=== PATIENT | female | born 1935 | race African-American/Black ===

== ENCOUNTER 2017-11-30 08:29 | Inpatient (IN) | payer MEDICARE ==
--- NOTE | 2017-11-18 11:39 | HP ---
HISTORY AND PHYSICAL: DATE OF ADMISSION/SURGERY: 11/30/17 DATE OF OFFICE VISIT: 11/17/17 SURGEON: Alicia Henning MD * (DICTATED BY OSVALDO SALDAÑA) PROCEDURE: Left total knee arthroplasty. CHIEF COMPLAINT: Left knee pain. HISTORY OF PRESENT ILLNESS: Ms. Potter is an 82-year-old female with complaints of left knee pain secondary to end-stage osteoarthritis. She has failed conservative treatment and elected to proceed with a left total knee arthroplasty, which is scheduled for 11/30/[address] Henning. PAST MEDICAL HISTORY: AFib, pacemaker, angiomyolipoma of the kidney, hypothyroidism, coronary artery disease, diabetes, kidney disease, hypertension , hypercholesterolemia. PAST SURGICAL HISTORY: Pacemaker placement and hysterectomy. CURRENT MEDICATIONS: 1. Nitro patch as needed. 2. Losartan potassium 25 mg every day. 3. Eliquis 2.5 mg twice a day. 4. Hydralazine 10 mg 3 times a day. 5. Amlodipine 10 mg every morning. 6. Metformin 500 mg daily. 7. Levothyroxine 112 mcg daily. 8. Atorvastatin calcium 20 mg daily. 9. Glucosamine 500 mg. 10. Vitamin D3. 11. Atenolol 50 mg twice a day. 12. Tylenol as needed. 13. Tramadol 50 mg as needed for pain. ALLERGIES: To KEFLEX. FAMILY HISTORY: Diabetes, hypertension, coronary artery disease. SOCIAL HISTORY: She is an 82-year-old female, she lives alone. She does not smoke, use drugs, or alcohol. REVIEW OF SYSTEMS: A complete 14-point review of systems was reviewed with the patient, positive for hypothyroidism, diabetes, and kidney disease. She denies history of DVT, PE, hepatitis, HIV, or anesthesia problems. PHYSICAL EXAMINATION GENERAL: She is well-developed, well-nourished, in no acute distress. VITAL SIGNS: She stands 61 inches tall, she weighs 113 pounds. Her blood pressure 128/82 and her heart rate is 74. HEENT: Normocephalic and atraumatic. NECK: Supple. No palpable lymph nodes. PULMONARY: The lungs are clear to auscultation bilaterally. CARDIO: Regular rate and rhythm. Strong S1 and S2. ABDOMEN: Soft, nontender, and nondistended. NEUROLOGIC: She is alert and oriented x3. MUSCULOSKELETAL: Left lower extremity: The skin is intact. There are no open wounds or abrasions. There is a moderate joint effusion. Range of motion is 10 to 100 degrees of flexion with patellofemoral crepitus. There is a 12- degree valgus deformity. 5/5 lower extremity strength. 2+ dorsalis pedis pulses and intact sensation. ASSESSMENT AND PLAN: Ms. Potter is an 82-year-old female with continued complaints of left knee pain secondary to end-stage osteoarthritis. She has failed conservative treatment and elected to proceed with a left total knee arthroplasty, which is scheduled for 11/30/[address] Henning discussed the risks and the benefits of the surgery at today's visit and all of her questions were answered. She will follow up with Dr. Henning 2 weeks after the surgery. OSVALDO SALDAÑA [id number]/[facility] #: [id number] [place]
[~2017-11-30 08:29] MED LIST: Buffered Lidocaine 0.9% SYRIN* 5 ML/SYR SYRINGE INTRADERM ONE
--- OUTSIDE RECORDS SUMMARY | 2017-11-30 08:33 | XMS REPORT ---
:1935 External Reference #:[id number] Author Organization [employer] Address [address] [place] [address] [place] [address] Phone [phone] Care Team Providers Name Role Phone Dimitry Baltazar MD Primary Care Physician Unavailable Payers Type Date Identification Numbers Payment Provider Subscriber Commercial Policy Number: [id number] [employer]/Todays Options Lilliana Potter PayID: [id number] [address] [address] Attn: [place] [address] Problems Date Description Provider Status Onset: 03/13/2014 Cardiac pacemaker in situ Renuka Cunningham M.D. Active Onset: 03/13/2014 Sinus node dysfunction Renuka Cunningham M.D. Active Onset: 03/13/2014 Paroxysmal supraventricular tachycardia Renuka Cunningham M.D. Active Onset: 09/18/2014 Hyperlipidemia Renuka Cunningham M.D. Active Onset: 09/18/2014 Aortic valve disorder Renuka Cunningham M.D. Active Onset: 10/24/2015 Paroxysmal atrial fibrillation Renuka Cunningham M.D. Active Onset: 02/25/2016 Localized, primary osteoarthritis Ofe Vela MD Active Onset: 02/25/2016 Calcific tendinitis of right shoulder Ofe Vela MD Active Onset: 02/25/2016 Brachial neuritis Ofe Vela MD Active Onset: 08/06/2016 Pure hypercholesterolemia Renuka Cunningham M.D. Active Onset: 08/06/2016 Coronary artery atheroma Renuka Cunningham M.D. 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 Active unsp ang pctrs Family History Date Family Member(s) Problem(s) Comments General Diabetes General Hypertension Social History Type Date Description Comments Marital Status Lives With Alone Occupation Retired Cigarette Use Former Cigarette Smoker ETOH Use Denies alcohol use Smoking Patient is a former smoker quit smoking 40 years ago May 1975 Recreational Drug Use Denies Drug Use Daily Caffeine Consumes on average 2 cups of decaff coffee per day Daily Caffeine Coffee occasionally Exercise Type/Frequency Exercises sporadically Allergies, Adverse Reactions, Alerts Date Description Reaction Status Severity Comments 05/29/2013 Keflex hives active 05/29/2013 Amlodipine LE edema active 05/29/2013 Diovan palpitations inactive Medications Medication Date Status Form Strength Qnty SIG Indications Ordering Provider Tramadol HCL 09/24 Active Tablets 50mg 30tab 1-2 tablet s by mouth Juvencio, every 6 M.D. hours as needed pain Nitro-Dur 02/05 Active Patches 0.2mg/HR 30uni 1 patch R07.9 24HR ts every day Marisa, on in the M.D. morning, off at night Losartan Potassium 01/27 Active Tablets 25mg 90tab 1 by mouth I10 Eyal S. s every day Wade, at night. DO FACC Eliquis 10/23 Active Tablets 2.5mg 60tab 1 tablet by I48.0 s mouth twice Marisa, a day. M.D. blood thinner. Hydralazine HCL 05/19 Active Tablets 10mg 540ta 2 tabs by Renuka bs mouth three Bingham, times a day M.D. Amlodipine Active Tablets 10mg 1 tab po qd Unknown Besylate Am Metformin HCL Active Tablets 500mg 1 tab po Unknown once daily Levothyroxine Active Tablets 112mcg 1 tab po qd Unknown Sodium Am Atorvastatin Active 20mg 1 tab po qd Unknown Calcium / pm Glucosamine Active Capsules 500mg 1 tablet po Unknown / as needed (ran out, will restart) Vitamin D3 Active 2000Units 1 po daily Unknown occasionall y Atenolol 00/00 Active Tablets 50mg 180ta 1 tab by Renuka / bs mouth twice Marisa, a day am/pm M.D. MSM Active Capsules 1000mg 1/2 tablet Unknown /0000 by mouth occasional Tylenol Active Capsules 2 tablets Unknown /0000 every 4 hours as needed for pain Tylenol With 02/24 Hx Tablets 300-30mg 30tab 1 tab by Jose Mcgarry #3 s mouth every Oc, - 4 hours as M.D. 09/14 needed pain /2017 Klor-Con 10 09/18 Hx Tablets 10Meq 90tab 1 tablets 427.0 Renuka ER s by mouth Bingham, - daily . M.D. 12/24 Losartan Potassium 07/07 Hx Tablets 100mg 90tab 1 tab by Renuka s mouth every Bingham, - day M.D. 08/28 Isosorbide Hx Tablets 10mg 90tab 1 tab by Renuka Dinitrate / s mouth three Bingham, - times a day M.D. 08/28 Aspirin Hx Tablets 81mg 1 po qd I48.0 Unknown /0000 DR - 10/23 Potassium Hx Tablets 595mg 2 tabs Unknown Gluconate / daily - 06/01 Vitamin D3 Hx Capsules 2000Unit 2 by mouth Unknown /0000 every day - 06/01 Aspirin Ec Low Hx Tablets 81mg 1 by mouth Unknown Dose /0000 DR every day - 07/19 Isosorbide Hx Tablets 10mg 1 tab by Unknown Dinitrate / mouth three - times a day 02/05 (patient /2017 thinks she stopped taking it) Gabapentin Hx Capsules 300mg 1 by mouth Unknown /0000 two times a - day (pt is 03/29 not taking) Gabapentin Hx Capsules 100mg 1 tablet po Rah, / twice daily Abraham, - ( Pt has [facility] 07/25 been taking /2017 only evening dose for 1 week now, start Am dose today 03/30/17) Methylprednisolone 00 Hx TBPK 4mg Rah, /0000 Abraham, - [facility] 07/25 Cyclobenzaprine Hx Tablets 5mg Monreal, HCL / Abraham, - [facility] 07/25 Medications Administered in Office Medication Date Status Form Strength Qnty SIG Indications Ordering Provider Inj, Administered Injection Renuka Regadenoson, 018 Bingham, 0.1 MG M.D. Technetium TC Administered Injection Renuka 99M 018 Bingham, Tetrofosmin, M.D. Per Unit Dose Up To 40 Millicuries Technetium TC Administered Injection Renuka 99M 018 Marisa, Tetrofosmin, M.D. Per Unit Dose Up To 40 Millicuries Depomedrol Administered Injection Alicia 40MG 018 Juvencio, M.D. Inj, Administered Injection Renuka Regadenoson, 013 Marisa, 0.1 MG M.D. Technetium TC Administered Injection Renuka 99M 013 Marisa, Tetrofosmin, M.D. Per Unit Dose Up To 40 Millicuries Immunizations CPT Code Status Date Vaccine Lot # [id number] Given 02/24/2006 Influenza Virus 3Yrs & Over [id number] Given 02/24/2006 Influenza Virus 3Yrs & Over Vital Signs Date Vital Result Comment 11/17/2017 Height 61.5 inches 5'1.50" Weight 113.00 lb BP Systolic 128 mmHg BP Diastolic 82 mmHg Respiratory Rate 16 /min Body Temperature 98.0 F Pain Level 5 BMI (Body Mass Index) 21.0 kg/m2 10/26/2017 Height 61.5 inches 5'1.50" Weight 113.00 lb Heart Rate 56 /min BP Systolic Sitting 128 mmHg BP Diastolic Sitting 74 mmHg BP Systolic Standing 120 mmHg BP Diastolic Standing 80 mmHg BMI (Body Mass Index) 21.0 kg/m2 Ejection Fraction 65-70% 07-11-201509/15/2017 Height 61.5 inches 5'1.50" Weight 118.00 lb Heart Rate 80 /min BP Systolic 160 mmHg BP Diastolic 84 mmHg BMI (Body Mass Index) 21.9 kg/m2 07/26/2017 Height 61.5 inches 5'1.50" Weight 118.00 lb Heart Rate 70 /min BP Systolic Sitting 158 mmHg LA reg cuff BP Diastolic Sitting 90 mmHg LA reg cuff Pain Level 0 BMI (Body Mass Index) 21.9 kg/m2 07/19/2017 Height 61.5 inches 5'1.50" Weight 118.00 lb Heart Rate 63 /min BP Systolic 124 mmHg BP Diastolic 68 mmHg Respiratory Rate 20 /min Body Temperature 97.7 F Pain Level 0 BMI (Body Mass Index) 21.9 kg/m2 03/30/2017 Height 61.5 inches 5'1.50" Weight 118.00 lb w/shoes Heart Rate 66 /min BP Systolic Sitting 168 mmHg LA reg cuff BP Diastolic Sitting 90 mmHg LA reg cuff BP Systolic Standing 170 mmHg LA reg cuff BP Diastolic Standing 98 mmHg LA reg cuff BMI (Body Mass Index) 21.9 kg/m2 Ejection Fraction 65-70% date 07/12/2015 ECHO 02/23/2017 Height 61.5 inches 5'1.50" Weight 117.00 lb with shoes Heart Rate 66 /min BP Systolic Sitting 158 mmHg Lue reg cuff BP Diastolic Sitting 92 mmHg Lue reg cuff BP Systolic Standing 146 mmHg Lue reg cuff BP Diastolic Standing 82 mmHg Lue reg cuff Respiratory Rate 16 /min BMI (Body Mass Index) 21.7 kg/m2 Ejection Fraction 65-70% 07/12/2015-echo 02/05/2017 Height 61.5 inches 5'1.50" Weight 116.75 lb with shoes Heart Rate 70 /min BP Systolic Sitting 140 mmHg LA reg cuff BP Diastolic Sitting 78 mmHg LA reg cuff BMI (Body Mass Index) 21.7 kg/m2 Ejection Fraction 65% - 70% echo 07/12/15 09/11/2016 Height 61.5 inches 5'1.50" Weight 118.00 lb without shoes Heart Rate 68 /min BP Systolic Sitting 144 mmHg Lue reg cuff BP Diastolic Sitting 80 mmHg Lue reg cuff BP Systolic Standing 140 mmHg Lue reg cuff BP Diastolic Standing 78 mmHg Lue reg cuff Respiratory Rate 17 /min BMI (Body Mass Index) 21.9 kg/m2 Ejection Fraction 65-70% date 07/12/2015 echo 08/06/2016 Height 61.5 inches 5'1.50" Weight 118.00 lb Heart Rate 68 /min BP Systolic Sitting 132 mmHg Lue reg cuff BP Diastolic Sitting 74 mmHg Lue reg cuff BP Systolic Standing 128 mmHg Lue BP Diastolic Standing 78 mmHg Lue Respiratory Rate 14 /min BMI (Body Mass Index) 21.9 kg/m2 Ejection Fraction 65-70% 07/12/15 03/31/2016 Height 61.5 inches 5'1.50" Weight 116.00 lb Respiratory Rate 16 /min Pain Level 0 BMI (Body Mass Index) 21.6 kg/m2 02/25/2016 Height 61.5 inches 5'1.50" Weight 116.00 lb Heart Rate 60 /min Respiratory Rate 16 /min Pain Level 5 BMI (Body Mass Index) 21.6 kg/m2 02/18/2016 Height 61.5 inches 5'1.50" Weight 116.00 lb BP Systolic 140 mmHg BP Diastolic 82 mmHg Pain Level 4 BMI (Body Mass Index) 21.6 kg/m2 01/28/2016 Height 61.5 inches 5'1.50" Weight 118.50 lb no shoes Heart Rate 64 /min BP Systolic Sitting 170 mmHg LA reg cuff BP Diastolic Sitting 100 mmHg LA reg cuff BP Systolic Standing 166 mmHg LA reg cuff BP Diastolic Standing 98 mmHg LA reg cuff Respiratory Rate 17 /min BMI (Body Mass Index) 22.0 kg/m2 Ejection Fraction 65-70% 07/12/15 11/06/2015 Height 61.5 inches 5'1.50" Weight 121.50 lb with shoes Heart Rate 58 /min BP Systolic Sitting 146 mmHg LA reg cuff BP Diastolic Sitting 84 mmHg LA reg cuff BP Systolic Standing 144 mmHg LA reg cuff BP Diastolic Standing 82 mmHg LA reg cuff Respiratory Rate 16 /min BMI (Body Mass Index) 22.6 kg/m2 Ejection Fraction 65-70% date 07/12/15 ECHO 10/24/2015 Height 61.5 inches 5'1.50" Weight 119.00 lb No shoes Heart Rate 68 /min BP Systolic Sitting 142 mmHg LA reg cuff BP Diastolic Sitting 86 mmHg LA reg cuff BP Systolic Standing 146 mmHg LA reg cuff BP Diastolic Standing 90 mmHg LA reg cuff Respiratory Rate 16 /min BMI (Body Mass Index) 22.1 kg/m2 Ejection Fraction 65-70% 07/12/15 08/30/2015 Height 61.5 inches 5'1.50" Weight 119.00 lb with out shoes Heart Rate 60 /min BP Systolic Sitting 128 mmHg LA reg cuff BP Diastolic Sitting 80 mmHg LA reg cuff Respiratory Rate 16 /min BMI (Body Mass Index) 22.1 kg/m2 Ejection Fraction 65-70% date 07/12/15 ECHO 07/02/2015 Height 61.5 inches 5'1.50" Weight 120.00 lb w/o shoes Heart Rate 70 /min reg BP Systolic Sitting 126 mmHg Lue, reg cuff BP Diastolic Sitting 84 mmHg Lue, reg cuff BP Systolic Standing 132 mmHg Lue BP Diastolic Standing 84 mmHg Lue Respiratory Rate 16 /min BMI (Body Mass Index) 22.3 kg/m2 Ejection Fraction 55-60% as of 06/20/12 echo 12/25/2014 Height 61.5 inches 5'1.50" Weight 122.00 lb with shoes Heart Rate 80 /min BP Systolic Sitting 150 mmHg LA reg cuff BP Diastolic Sitting 90 mmHg LA reg cuff BP Systolic Standing 140 mmHg LA reg cuff BP Diastolic Standing 88 mmHg LA reg cuff Respiratory Rate 17 /min BMI (Body Mass Index) 22.7 kg/m2 Ejection Fraction 55-60% date 06/20/12 ECHO 09/18/2014 Height 61.5 inches 5'1.50" Weight 127.00 lb with shoes Heart Rate 70 /min BP Systolic Sitting 154 mmHg LA, reg cuff BP Diastolic Sitting 92 mmHg LA, reg cuff BP Systolic Standing 140 mmHg LA BP Diastolic Standing 90 mmHg LA Respiratory Rate 14 /min BMI (Body Mass Index) 23.6 kg/m2 Ejection Fraction 55-60% 06/20/2012 03/13/2014 Height 61.5 inches 5'1.50" Weight 131.00 lb with shoes Heart Rate 60 /min regular BP Systolic Sitting 128 mmHg left arm reg cuff BP Diastolic Sitting 88 mmHg left arm reg cuff BP Systolic Standing 132 mmHg left arm reg cuff BP Diastolic Standing 84 mmHg left arm reg cuff Respiratory Rate 18 /min BMI (Body Mass Index) 24.3 kg/m2 10/27/2013 Height 61.5 inches 5'1.50" Weight 132.00 lb Heart Rate 64 /min BP Systolic Sitting 138 mmHg Ra reg cuff BP Diastolic Sitting 72 mmHg Ra reg cuff BP Systolic Standing 140 mmHg Ra BP Diastolic Standing 82 mmHg Ra Respiratory Rate 16 /min BMI (Body Mass Index) 24.5 kg/m2 05/29/2013 Height 61.50 inches 5'1.50" Weight 134.00 lb without shoes Heart Rate 80 /min reg cuff BP Systolic Sitting 130 mmHg L arm reg cuff BP Diastolic Sitting 72 mmHg L arm reg cuff BP Systolic Standing 140 mmHg L arm reg cuff BP Diastolic Standing 80 mmHg L arm reg cuff Respiratory Rate 18 /min BMI (Body Mass Index) 24.9 kg/m2 Results Test Date Test Result H/L Range Note Urinalysis Profile 04/20/2017 Urine Color Yellow Urine Appearance Clear Urine Specific Plummer 1.013 1.010-1.030 Urine pH 7.0 5-9 Urine Urobilinogen Negative Negative Urine Ketones Negative Negative Urine Protein Negative Negative Urine Leukocytes Negative Negative Urine Blood Negative Negative Urine Nitrite Negative Negative Urine Bilirubin Negative Negative Urine Glucose Negative Negative Urine Culture And 04/20/2017 Urine Culture SEE RESULT BELOW 1 Sensitivities Basic Metabolic Panel 04/20/2017 Sodium 139 mmol/L 133-145 Potassium 4.2 mmol/L 3.5-5.0 Chloride 105 mmol/L 101-111 Co2 Carbon Dioxide 28 mmol/L 22-32 Anion Gap 6 mmol/L 2-11 Glucose 95 mg/dL 70-100 Blood Urea Nitrogen 18 mg/dL 6-24 Creatinine 0.80 mg/dL 0.51-0.95 BUN/Creatinine Ratio 22.5 High 8-20 Calcium 10.2 mg/dL 8.6-10.3 Egfr Non- 68.5 >60 Egfr 88.1 >60 2 Lipid Profile (Trig/Chol/HDL) 04/20/2017 Triglycerides 73 mg/dL 3 Cholesterol 134 mg/dL 4 HDL Cholesterol 49.0 mg/dL 5 LDL Cholesterol 70 mg/dL 6 Liver Function Panel 04/20/2017 Total Protein 7.4 g/dL 6.4-8.9 Albumin 4.2 g/dL 3.2-5.2 Globulin 3.2 g/dL 2-4 Albumin/Globulin Ratio 1.3 1-3 Total Bilirubin 0.70 mg/dL 0.2-1.0 Direct Bilirubin 0.10 mg/dL 0.03-0.18 Indirect Bilirubin 0.6 mg/dL 0.3-1.0 Alkaline Phosphatase 38 U/L 34-104 Alt 12 U/L 7-52 Ast 15 U/L 13-39 Laboratory test finding 04/20/2017 TSH (Thyroid Stim Horm) 0.82 mcIU/mL 0.34-5.60 Urine Microalbumin 04/20/2017 Ur Microalbumin (mg/L) 48.7 mg/L Random Urine Creatinine 99.79 mg/dL Urine Microalbumin/Creatinine 48.8 ug/mg High <31 CBC Auto Diff 04/20/2017 White Blood Count 5.2 10^3/uL 3.5-10.8 Red Blood Count 3.88 10^6/uL Low 4.0-5.4 Hemoglobin 11.7 g/dL Low 12.0-16.0 Hematocrit 35 % 35-47 Mean Corpuscular Volume 91 fL 80-97 Mean Corpuscular Hemoglobin 30 pg 27-31 Mean Corpuscular HGB Conc 33 g/dL 31-36 Red Cell Distribution Width 15 % 10.5-15 Platelet Count 208 10^3/uL 150-450 Mean Platelet Volume 9 um3 7.4-10.4 Abs Neutrophils 2.5 10^3/uL 1.5-7.7 Abs Lymphocytes 2.1 10^3/uL 1.0-4.8 Abs Monocytes 0.4 10^3/uL 0-0.8 Abs Eosinophils 0.1 10^3/uL 0-0.6 Abs Basophils 0.1 10^3/uL 0-0.2 Abs Nucleated RBC 0 10^3/uL Granulocyte % 48.8 % 38-83 Lymphocyte % 41.0 % 25-47 Monocyte % 7.0 % 1-9 Eosinophil % 2.0 % 0-6 Basophil % 1.2 % 0-2 Nucleated Red Blood Cells % 0 Laboratory test finding 04/20/2017 Erythrocyte Sed Rate 34 mm/Hr 0-40 Urine Culture And 04/19/2017 Urine Culture SEE RESULT BELOW 7 Sensitivities Urinalysis Profile 04/19/2017 Urine Color Yellow Urine Appearance Clear Urine Specific Plummer 1.019 1.010-1.030 Urine pH 6.0 5-9 Urine Urobilinogen Negative Negative Urine Ketones Negative Negative Urine Protein 1+(30 mg/dL) Negative Urine Leukocytes Negative Negative Urine Blood Negative Negative Urine Nitrite Negative Negative Urine Bilirubin Negative Negative Urine Glucose Negative Negative Urine White Blood Cell Trace(0-5/hpf) Absent Urine Red Blood Cell Trace(0-2/hpf) Absent Urine Bacteria Absent Absent Urine Squamous Epithelial Cell Present Absent Basic Metabolic Panel 11/08/2013 Sodium 140 mmol/L 133-145 Potassium 3.8 mmol/L 3.7-5.6 Chloride 107 mmol/L 101-111 Co2 Carbon Dioxide 26 mmol/L 22-32 Anion Gap 7 mmol/L 2-11 Glucose 140 mg/dL High 70-100 Blood Urea Nitrogen 11 mg/dL 6-24 Creatinine 0.71 mg/dL 0.51-0.95 BUN/Creatinine Ratio 15.5 8-20 Calcium 10.1 mg/dL 8.6-10.3 Egfr Non- 79.4 >60 Egfr 102.1 >60 8 Laboratory test finding 11/08/2013 Creatine Kinase 51 U/L 10-223 Laboratory test finding 05/15/2013 TSH (Thyroid Stimulating 2.07 miu/mL 0.34-5.60 Horm) Liver Function Panel 05/15/2013 Direct Bilirubin 0.1 mg/dL 0.1-0.5 Indirect Bilirubin 0.7 mg/dL 0.3-1.0 Lipid Profile (Trig/Chol/HDL) 05/15/2013 Triglycerides 104 mg/dL 40-200 Cholesterol 142 mg/dL Less than 200 HDL Cholesterol 47 mg/dL 40-60 9 Cholesterol/HDL Ratio 3.0 Average 1-4.44 LDL Cholesterol 74.2 Less Than 100 10 Comp Metabolic Panel 05/15/2013 Sodium 137 mmol/L 133-145 Potassium 3.2 mmol/L Low 3.5-5.0 Chloride 99 mmol/L Low 101-111 Co2 Carbon Dioxide 27.0 mmol/L 22-32 Anion Gap 11.0 mmol/L 2-11 Glucose 121 mg/dL High 70-100 Blood Urea Nitrogen 14 mg/dL 6-24 Creatinine 0.70 mg/dL 0.50-1.40 BUN/Creatinine Ratio 20.0 8-20 Calcium 10.3 mg/dL High 8.1-9.9 Total Protein 7.4 g/dL 6.2-8.1 Albumin 4.2 g/dL 3.2-5.2 Globulin 3.2 g/dL 2-4 Albumin/Globulin Ratio 1.3 1-3 Total Bilirubin 0.8 mg/dL 0.4-1.5 Alkaline Phosphatase 36 U/L 30-110 Alt 15 U/L 14-54 Ast 19 U/L 12-42 Egfr Non- 80.7 >60 Egfr 103.8 >60 11 Urine Microalbumin Random 05/15/2013 Ur Microalbumin (mg/L) 123.0 mg/L 12 Urine Creatinine 28.9 mg/dL Urine Microalbumin/Creatinine 425.6 High Less Than 31 CBC No Diff 05/15/2013 White Blood Count 5.9 10^3/uL 4.8-10.8 Red Blood Count 4.16 10^6/uL 4.0-5.4 Hemoglobin 12.9 g/dL 12.0-16.0 Hematocrit 37 % 35-47 Mean Corpuscular Volume 89 fL 80-97 Mean Corpuscular Hemoglobin 31 pg 27-31 Mean Corpuscular HGB Conc 35 g/dL 31-36 Red Cell Distribution Width 15 % 10.5-15 Platelet Count 209 10^3/uL 150-450 Mean Platelet Volume 10 um3 7.4-10.4 Laboratory test finding 10/20/2012 Inr 0.91 0.87-0.97 13 Activated Partial Thrombo Time 29.7 seconds 22.18-37.18 14 Comp Metabolic Panel 10/20/2012 Sodium 142 mmol/L 133-145 Potassium 3.2 mmol/L Low 3.5-5.0 Chloride 107 mmol/L 101-111 Co2 Carbon Dioxide 26.0 mmol/L 22-32 Anion Gap 9.0 mmol/L 2-11 Glucose 118 mg/dL High 70-100 Blood Urea Nitrogen 15 mg/dL 6-24 Creatinine 0.70 mg/dL 0.50-1.40 BUN/Creatinine Ratio 21.4 High 8-20 Calcium 10.1 mg/dL High 8.1-9.9 Total Protein 7.5 g/dL 6.2-8.1 Albumin 3.8 g/dL 3.2-5.2 Globulin 3.7 g/dL 2-4 Albumin/Globulin Ratio 1.0 1-3 Total Bilirubin 0.9 mg/dL 0.4-1.5 Alkaline Phosphatase 38 U/L 30-110 Alt 13 U/L Low 14-54 Ast 17 U/L 12-42 Egfr Non- 80.9 >60 Egfr 104.1 >60 15 CBC With Manual Diff 10/20/2012 White Blood Count 5.9 10^3/uL 4.8-10.8 Red Blood Count 4.11 10^6/uL 4.0-5.4 Hemoglobin 12.8 g/dL 12.0-16.0 Hematocrit 37 % 35-47 Mean Corpuscular Volume 91 fL 80-97 Mean Corpuscular Hemoglobin 31 pg 27-31 Mean Corpuscular HGB Conc 34 g/dL 31-36 Red Cell Distribution Width 15 % 10.5-15 Platelet Count 200 10^3/uL 150-450 Mean Platelet Volume 10 um3 7.4-10.4 Abs Neutrophils 3.2 10^3/uL 1.5-7.7 Abs Lymphocytes 2.0 10^3/uL 1.0-4.8 Abs Monocytes 0.5 10^3/uL 0-0.8 Abs Eosinophils 0.1 10^3/uL 0-0.6 Abs Basophils 0.1 10^3/uL 0-0.2 Abs Nucleated RBC 0 10^3/uL Neutrophil % 52 % 38-83 Band % 1 % 0-8 Lymphocytes % 41 % 25-47 Monocytes % 5 % 0-13 Reactive Lymph % 1 % 0-6 RBC Morphology Normal Normal 1 SEE RESULT BELOW Name: LILLIANA POTTER : [address]: Renuka Cunningham MD Acct: [id number] Unit: [id number] AGE: 82 Location: [facility] Re04/20/17 SEX: F Status: REG REF SPEC: [id number] ALICIA: 04/20/17-[address] [facility] [address]: Renuka Cunningham MD REQ: [id number] RECD: 04/20/17 STATUS: AISHA CABRALES DR: Dimitry Baltazar MD _ SOURCE: URINE SPDESC: ORDERED: Urine Culture Urine Source: Clean Catch Procedure Result Reported Site Urine Culture Final 04/22/17- 0826 ML No Growth (<1,000 CFU/mL) * ML - MAIN LAB ([facility]) . END OF REPORT * ML=Testing performed at Main Lab DEPARTMENT OF PATHOLOGY, [address] [place] [address] Darnell Mcgraw M.D. Director [facility] # [id number] 2 Because ethnic data is not always readily available, this report includes an eGFR for both -Americans and non- Americans. The National Kidney Disease Education Program (NKDEP) does not endorse the use of the MDRD equation for patients that are not between the ages of 18 and 70, are , have extremes of body size, muscle mass, or nutritional status, or are non- or non-. According to the National Kidney Foundation, irrespective of diagnosis, the stage of the disease is based on the level of kidney function: Stage Description GFR(mL/min/1.73 m(2)) 1 Kidney damage with normal or decreased GFR 90 2 Kidney damage with mild decrease in GFR 60-89 3 Moderate decrease in GFR 30-59 4 Severe decrease in GFR 15-29 5 Kidney failure <15 (or dialysis) 3 Desirable: <150 Borderline High: 150-199 High: 200-499 Very High: >500 4 Desirable: <200 Borderline High: 200-239 High: >239 5 Low: <40 Desirable: 40-60 High: >60 6 Desirable: <100 Near Optimal: 100-129 Borderline High: 130-159 High: 160-189 Very High: >189 7 SEE RESULT BELOW Name: LILLIANA POTTER : [address]: Renuka Cunningham MD Acct: [id number] Unit: [id number] AGE: 82 Location: [facility] Re04/19/17 SEX: F Status: REG REF SPEC: [id number] ALICIA: 04/19/[address] [facility] [address]: Renuka Cunningham MD REQ: [id number] RECD: 04/19/17 STATUS: AISHA CABRALES DR: Dimitry Baltazar MD _ SOURCE: URINE SPDESC: ORDERED: Urine Culture COMMENTS: Copy Result to: DIMITRY BALTAZAR ([id number]) Procedure Result Reported Site Urine Culture Final 04/20/17- 1258 ML No growth of clinically significant organisms * ML - MAIN LAB ([facility]) . END OF REPORT * ML=Testing performed at Main Lab DEPARTMENT OF PATHOLOGY, [address] [place] [address] Darnell Mgcraw M.D. Director [facility] # [id number] 8 Because ethnic data is not always readily available, this report includes an eGFR for both -Americans and non- Americans. The National Kidney Disease Education Program (NKDEP) does not endorse the use of the MDRD equation for patients that are not between the ages of 18 and 70, are , have extremes of body size, muscle mass, or nutritional status, or are non- or non-. According to the National Kidney Foundation, irrespective of diagnosis, the stage of the disease is based on the level of kidney function: Stage Description GFR(mL/min/1.73 m(2)) 1 Kidney damage with normal or decreased GFR 90 2 Kidney damage with mild decrease in GFR 60-89 3 Moderate decrease in GFR 30-59 4 Severe decrease in GFR 15-29 5 Kidney failure <15 (or dialysis) 9 HDL Interpretation: Undesirable: High Risk: Less than 40 mg/dL Desirable: Low Risk: Greater than 60 mg/dL 10 LDL Interpretation: Low Risk Optimal Level: LDL Less than 100 mg/dL Near or Above Optimal: LDL 100-129 mg/dL Borderline High Risk: LDL 130-159 mg/dL High Risk: LDL 160-189 mg/dL Very High Risk: LDL Greater than 189 mg/dL 11 Because ethnic data is not always readily available, this report includes an eGFR for both -Americans and non- Americans. The National Kidney Disease Education Program (NKDEP) does not endorse the use of the MDRD equation for patients that are not between the ages of 18 and 70, are , have extremes of body size, muscle mass, or nutritional status, or are non- or non-. According to the National Kidney Foundation, irrespective of diagnosis, the stage of the disease is based on the level of kidney function: Stage Description GFR(mL/min/1.73 m(2)) 1 Kidney damage with normal or decreased GFR 90 2 Kidney damage with mild decrease in GFR 60-89 3 Moderate decrease in GFR 30-59 4 Severe decrease in GFR 15-29 5 Kidney failure <15 (or dialysis) 12 Microalbuminuria in a random sample is defined as: Microalbumin/Creatinine ratio of 30-299 ug/mg. 13 CALL RESULTS TOO EX 4590 14 CALL RESULTS TOO EX 4590 15 Because ethnic data is not always readily available, this report includes an eGFR for both -Americans and non- Americans. The National Kidney Disease Education Program (NKDEP) does not endorse the use of the MDRD equation for patients that are not between the ages of 18 and 70, are , have extremes of body size, muscle mass, or nutritional status, or are non- or non-. According to the National Kidney Foundation, irrespective of diagnosis, the stage of the disease is based on the level of kidney function: Stage Description GFR(mL/min/1.73 m(2)) 1 Kidney damage with normal or decreased GFR 90 2 Kidney damage with mild decrease in GFR 60-89 3 Moderate decrease in GFR 30-59 4 Severe decrease in GFR 15-29 5 Kidney failure <15 (or dialysis) Procedures Date CPT Code Description Status Comment 11/16/2017 22378 Myocardial Perfusion Imaging Completed Tomographic (Spect) Multiple Studies 10/26/2017 21668 Pace Maker Eval W/Iterative Completed Adjment Dual Lead 10/26/2017 54098 Pace Maker Eval W/Iterative Completed Adjment Dual Lead 10/26/2017 96708 EKG Tracing & Interpretation Completed 07/26/2017 97601 Inject/Drain Joint/Bursa Major Completed W/O US 03/30/2017 86489 Pace Maker Eval W/Iterative Completed Adjment Dual Lead 03/30/2017 97445 Pace Maker Eval W/Iterative Completed Adjment Dual Lead 02/05/2017 13936 EKG Tracing & Interpretation Completed 08/28/2016 57517 ECHO Stress Test Incl Perf Completed Contiuous ekg Monitoring W/Phys Superv 08/11/2016 12197 Pace Maker Eval W/Iterative Completed Adjment Dual Lead 08/06/2016 25934 EKG Tracing & Interpretation Completed 08/03/2016 Diabetic Retinal Eye Exam Completed Document: 08/03/16 - Consult Ophthalmology-Cornelio 01/28/2016 03198 Pace Maker Eval W/Iterative Completed Adjment Dual Lead 10/24/2015 67471 Pace Maker Eval W/Iterative Completed Adjment Dual Lead 08/30/2015 49488 Pace Maker Eval W/Iterative Completed Adjment Dual Lead 08/24/2015 65605 Interrogation Device Eval In Completed Person W/DR Analysis,Single,Dual,Mul 07/12/2015 29165 ECHO Transthoracic, Real-Time Completed 2D With Doppler And Color Flow 07/02/2015 62025 Pace Maker Eval W/Iterative Completed Adjment Dual Lead 12/13/2014 40048 Interrogation Device Eval In Completed Person W/DR Analysis,Single,Dual,Mul 09/18/2014 18795 Interrogation Device Eval In Completed Person W/DR Analysis,Single,Dual,Mul 09/13/2014 Bone Mineral Density Test Completed 05/22/2014 Diabetic Retinal Eye Exam Completed Document: 05/22/14 - Consult Ophthalmology-Dr. Garay 03/13/2014 74314 Pace Maker Eval W/Iterative Completed Adjment Dual Lead 10/27/2013 37614 EKG Tracing & Interpretation Completed 09/05/2013 48412 Pace Maker Eval W/Iterative Completed Adjment Dual Lead 05/23/2013 63858 Pace Maker Eval W/Iterative Completed Adjment Dual Lead 12/26/2012 12003 Interrogation Device Eval In Completed Person W/DR Analysis,Single,Dual,Mul 11/23/2012 29539 Pace Maker Eval W/Iterative Completed Adjment Dual Lead 10/21/2012 04802 EKG, Interpretation Only Completed 10/21/2012 18846 Interrogation Device Eval In Completed Person W/DR Analysis,Single,Dual,Mul 10/20/2012 32783 Perm Pacemaker Av Sequential Completed Atrial And Ventricular 10/20/2012 29841 EKG, Interpretation Only Completed 09/23/2012 95781 Holter Monitoring 24 HR New Completed 06/30/2012 66260 Stress Test Completed 06/30/2012 64064 Myocardial Perfusion Imaging Completed Tomographic (Spect) Multiple Studies 06/22/2012 53911 EKG Tracing & Interpretation Completed 06/20/2012 83608 ECHO Transthorasic Realtime 2D Completed W Doppler & Color Flow Hosp 05/06/2008 37953 Treadmill Interp/Report Only Completed 05/06/2008 17855 Stress Test Supervsn W/Out I/R Completed 05/06/2008 92143 Stress Test Supervsn W/Out I/R Completed 03/23/2006 35470 EKG Tracing & Interpretation Completed 03/23/2006 34528 EKG Tracing & Interpretation Completed Encounters Type Date Location Provider CPT E/M Dx Office Visit 09/15/2017 [facility] M.D. 09114 M17.12 8:15a [facility] M21.062 M25.462 M25.562 Office Visit 07/19/2017 1:30p [facility] Hen[facility] M.D. 92183 M17.12 [facility] M21.00 M25.562 M25.462 Office Visit 03/30/2017 3:00p [facility] Cr Cunningham M.D. 02403 Z95.0 [employer] Carpenter I48.0 I35.0 R35.0 I49.5 E11.8 Office Visit 02/23/2017 1:00p [facility] Cr Cunningham M.D. 65864 R07.9 [employer] [facility] Z95.0 I48.0 I35.0 Office Visit 02/05/2017 3:00p [facility] OSVALDO Flowers 01208 R07.9 Z95.0 I48.0 Office Visit 09/11/2016 3:15p [facility] Renuka Cunningham M.D. 88707 Z95.0 [facility] I48.0 I49.5 E11.8 R01.1 I25.119 Office Visit 08/06/2016 3:30p [facility] Renuka Cunningham M.D. 26581 Z95.0 [facility] I48.0 I10 I35.0 E78.00 M79.604 I25.119 Office Visit 03/31/2016 11:30a [facility] [address] M75.31 [facility] M17.12 M54.12 Office Visit 02/25/2016 10:00a [facility] [place] [address] M75.31 [facility] M17.12 M54.12 Office Visit 02/18/2016 3:00p [facility] [place] [address] M75.41 [facility] M75.31 Office Visit 01/28/2016 8:30a [facility] Renuka Cunningham M.D. 65797 I48.0 [employer] I47.1 Z95.0 I10 R63.4 D41.00 Office Visit 11/06/2015 11:30a [facility] OSVALDO Flowers 87722LQP Z95.0 I48.0 I10 Office Visit 10/24/2015 1:30p [facility] Renuka Cunningham M.D. 55729 I48.0 [facility] Z95.0 I49.5 R53.83 I10 R42 Office Visit 08/30/2015 11:30a [facility] OSVALDO Flowers 65287 Z95.0 R55 E78.5 I25.10 Office Visit 08/25/2015 3:15p [facility] Renuka Cunningham M.D. 22483 R55 I47.1 Z95.0 Office Visit 07/02/2015 11:30a [facility] Renuka Cunningham M.D. 29187 Z95.0 [employer] I49.5 I47.1 I25.10 E78.5 R53.83 Office Visit 12/25/2014 1:30p [facility] Renuka Cunningham M.D. 16505 V45.01 [employer] [facility] 427.0 427.81 Office Visit 09/18/2014 10:45a [facility] Renuka Cunningham M.D. 15264 V45.01 [employer] 427.0 715.09 272.4 424.1 Office Visit 03/13/2014 11:00a [facility] Renuka Cunningham M.D. 27158 V45.01 [employer] 427.81 427.0 Office Visit 10/27/2013 10:15a [facility] Renuka Cunningham M.D. 23377 414.01 [employer] V45.01 401.9 272.0 Office Visit 05/29/2013 9:45a [facility] Cr Cunningham M.D. 40155 427.0 [employer] V45.01 401.9 427.81 414.01 Office Visit 01/18/2013 10:15a [facility] Renuka Cunningham M.D. 54858 782.3 [employer] 401.9 784.0 Office Visit 01/11/2013 10:30a [facility] Nurse Visit 56253 401.9 [employer] Office Visit 11/24/2012 12:15p [facility] Cr Cunningham M.D. 99647 427.81 [employer] 401.9 708.9 Office Visit 10/21/2012 1:44p [facility] Cr Cunningham M.D. 63233 780.4 [employer] 427.81 427.1 V45.01 427.89 Office Visit 09/27/2012 3:30p [facility] Cr Cunningham M.D. 77864 427.0 [employer] 427.81 Office Visit 07/13/2012 9:45a [facility] Cr Cunningham M.D. 15085 414.01 [employer] 427.31 427.81 427.0 Office Visit 06/22/2012 9:45a [facility] Cr Cunningham M.D. 31244 427.0 [employer] 427.89 427.81 786.50 Office Visit 06/19/2012 8:43a [facility] [place] [facility], [address]58 427.0 Hospitalists M.D. 780.2 250.90 401.9 Office Visit 12/22/2006 1:15p DO Not Use Radomski, Tesha, 97776 250.00 [facility] [place] M.D. 401.1 Office Visit 10/14/2006 4:00p DO Not Use Radomski, Tesha, 99190 786.50 [employer] [place] M.D. 785.1 Office Visit 09/29/2006 9:45a DO Not Use Radomski, Tesha, 59336 401.1 [employer] [place] M.D. 250.00 276.8 Office Visit 07/27/2006 4:15p DO Not Use Radomski, Tesha, 75844 786.2 [employer] [place] M.D. 401.1 V01.1 Office Visit 03/23/2006 3:45p DO Not Use RadomsJosé figueroaa, 37985 V72.81 [employer] [place] M.D. 250.00 401.1 244.9 Office Visit 02/24/2006 1:30p DO Not Use Radomski, Tesha, 12171 250.00 [employer] [place] M.D. 401.1 244.9 272.0 V04.81 Office Visit 11/16/2005 9:30a DO Not Use Radomski Tesha, 07460 401.1 [employer] [place] M.D. 244.9 250.00 Plan of Care Future Appointment(s):12/13/2017 10:15 am - Alicia [facility] M.D[facility] at [facility]11/30/2017 9:30 am - VARINDER Sierra at [facility]11/30/2017 9:30 am - OSVALDO Ybarra at [facility]11/30/2017 9:30 am - Alicia Henning M.D. at [facility]11/17/2017 - Alicai Henning M.D.M17.12 Unilateral primary osteoarthritis, left kneeFollow up:Follow up: 2 weeks after ftdffrcM26.062 Valgus deformity, not elsewhere classified, left kneeM25.462 Effusion, left kneeM25.562 Pain in left knee
[2017-11-30] MEDS ORDERED: Clindamycin 900 MG IVPREMIX(* 900 MG/50 ML SDV IV ONE (08:51)
[2017-11-30] MEDS ORDERED: Bupivacaine 0.25% SDV PF* 10 ML VIAL INJ ONE ×4 (10:22→13:04)
[2017-11-30] MEDS ORDERED: Midazolam* 1 MG/ML 5 ML VIAL (5 MG) ONE (10:51)
[2017-11-30] MEDS ORDERED: fentaNYL* 50 MCG/ML 2 ML VIAL (100 MCG VIAL) ONE ×2 (12:12→15:39)
[2017-11-30] MEDS ORDERED: Midazolam* 1 MG/ML 2 ML VIAL (2 MG) ONE (13:03)
[2017-11-30] MEDS ORDERED: Ondansetron INJ* 2 MG/ML VIAL IV PRN ×2 (13:23→13:52)
[2017-11-30] MEDS ORDERED: Naloxone* 0.4 MG/ML 1 ML VIAL IV PRN (13:23)
[2017-11-30] MEDS ORDERED: oxyCODONE/Acetamin 5/325 MG* TAB PO PRN ×2 (13:52)
[2017-11-30] MEDS ORDERED: Bisacodyl SUPP* 10 MG SUPP PR PRN (13:52)
[2017-11-30] MEDS ORDERED: Ondansetron ODT TAB* 4 MG PO PRN (13:52)
[2017-11-30] MEDS ORDERED: Magnesium Hydroxide LIQ* 30 ML UDC PO PRN (13:52)
[2017-11-30] MEDS ORDERED: Morphine VIAL* 4 MG/ML VIAL (1 ml vial) IV PRN (13:52)
[2017-11-30] MEDS ORDERED: diPHENhydraMINE PO* 25 MG PO PRN (13:52)
[2017-11-30] MEDS: Acetaminophen IV 1GM/100ML * 10 MG/ML VIAL IVPB ONE ×2 (14:59→16:20)
--- NOTE | 2017-11-30 15:10 | RAD ---
Indication: Postop LEFT total knee replacement. Comparison: No relevant prior exams available on the [facility] PACS for comparison. Technique: LEFT knee: AP and crosstable lateral views LEFT knee. views. Report: Total knee prosthesis in place with normal alignment. Negative for periprosthetic fracture. Anterior soft tissue edema and subcutaneous emphysema. IMPRESSION: #. Unremarkable immediate postop appearance of LEFT total knee replacement.
[2017-11-30] MEDS ORDERED: Bupivacaine 0.5% PF 10 ML VIAL INJ ONE (15:19)
[2017-11-30] MEDS: fentaNYL* 50 MCG/ML 2 ML VIAL (100 MCG VIAL) IV PRN ×4 (15:43→16:35)
[2017-11-30] MEDS ORDERED: HYDROmorphone INJ* 0.5 MG/0.5 ML SYRINGE ONE (16:14)
[2017-11-30] MEDS: HYDROmorphone INJ* 0.5 MG/0.5 ML SYRINGE IV PRN ×2 (16:16→16:57)
[2017-11-30] MEDS ORDERED: Acetaminophen IV 1GM/100ML * 100 ML ONE (16:18)
[2017-11-30] MEDS ORDERED: Cyclobenzaprine TAB* 10 MG ONE (17:25)
[2017-11-30] MEDS ORDERED: oxyCODONE TAB* 5 MG TAB ONE (17:25)
[2017-11-30] MEDS: Cyclobenzaprine TAB* 10 MG PO PRN (17:29)
[2017-11-30] MEDS: oxyCODONE TAB* 5 MG TAB PO PRN ×2 (17:30→22:48)
[2017-11-30] MEDS ORDERED: Morphine VIAL* 4 MG/ML VIAL (1 ml vial) IV ONE (17:51)
[2017-11-30] MEDS: Morphine VIAL* 4 MG/ML VIAL (1 ml vial) IV PRN ×3 (17:53→22:49)
[2017-11-30] MEDS: Atorvastatin* 20 MG TAB PO SCH (18:51)
[2017-11-30] MEDS: Ferrous Sulfate TAB* 325 MG PO SCH (20:11)
[2017-11-30] MEDS: Docusate CAP* 100 MG PO SCH (20:11)
[2017-11-30] MEDS: metFORMIN* 500 MG TAB PO SCH (20:12)
[2017-11-30] MEDS: Clindamycin 600 MG IVPREMIX(* 600 MG/50 ML SDV IV SCH (20:18)
[2017-11-30] MEDS: Atenolol TAB* 25 MG PO SCH (20:18)
[2017-11-30] MEDS ORDERED: metFORMIN* 500 MG TAB PO SCH (21:00)
[2017-11-30] MEDS: hydrALAZINE TAB* 10 MG PO SCH ×2 (22:49→23:12)
[2017-11-30] MEDS: Magnesium Hydroxide LIQ* 30 ML UDC PO SCH (23:13)
[2017-11-30] MEDS: Nitro Patch/OINT Remove PATCH OFF SCH (23:13)
[2017-12-01] MEDS: Acetaminophen TAB* 325 MG PO SCH ×3 (00:16→16:49)
[2017-12-01] MEDS: Cyclobenzaprine TAB* 10 MG PO PRN (02:08)
[2017-12-01] MEDS: Clindamycin 600 MG IVPREMIX(* 600 MG/50 ML SDV IV SCH ×2 (04:04→11:47)
[2017-12-01] MEDS: oxyCODONE TAB* 5 MG TAB PO PRN (06:23)
[2017-12-01 06:51] LABS: Hematocrit 29 % (35-47); Mean Platelet Volume 9.2 um3 (7.4-10.4); Platelet Count 202 10^3/ul (150-450)
[2017-12-01 07:01] LABS: EGFR Non-African American 70.5 (>60)
--- NOTE | 2017-12-01 07:53 | PN ---
Subjective - Subjective Reason for Note: Consultation Note History: She is 1 day post elective total knee arthroplasty. She tolerated the surgery well. She had a post surgical diuresis, with transient hypotension that responded to fluid. She managed to eat/drink last night without nausea/ vomiting. This morning she has surgical pain, but is otherwise feeling well. 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 Current Medications: Current Medications Acetaminophen (Tylenol Tab*) 975 mg PO Q8H [facility] Last Admin: 12/01/17 00:16 Dose: 975 mg Amlodipine Besylate (Norvasc Tab*) 10 mg PO QAM [facility] Apixaban (Eliquis) 2.5 mg PO BID [facility] Atenolol (Tenormin Tab*) 25 mg PO BID [facility] Last Admin: 11/30/17 20:18 Dose: 25 mg Atorvastatin Calcium (Lipitor*) 20 mg PO QPM [facility] Last Admin: 11/30/17 18:51 Dose: 20 mg Bisacodyl (Dulcolax Supp*) 10 mg VT DAILY PRN PRN Reason: constipation Cyclobenzaprine HCl (Flexeril Tab*) 5 mg PO TID PRN PRN Reason: SPASMS Last Admin: 12/01/17 02:08 Dose: 5 mg Diphenhydramine HCl (Benadryl Po*) 25 mg PO Q6H PRN PRN Reason: itching Docusate Sodium (Colace Cap*) 100 mg PO BID [facility] Last Admin: 11/30/17 20:11 Dose: 100 mg Ferrous Sulfate (Ferrous Sulfate Tab*) 325 mg PO BID [facility] Last Admin: 11/30/17 20:11 Dose: 325 mg Hydralazine HCl (Apresoline Tab*) 20 mg PO TID [facility] Last Admin: 11/30/17 23:12 Dose: Not Given Clindamycin HCl/Dextrose (Cleocin 600 Mg Ivpremix(*) Sdv) 600 mg in 50 mls @ 100 mls/hr IV Q8H [facility] Stop: 12/01/17 12:29 Last Admin: 12/01/17 04:04 Dose: 100 mls/hr Lactated Ringer's (Lactated Ringers 1000 Ml Bag*) 1,000 mls @ 75 mls/hr IV PER RATE [facility] Last Admin: 11/30/17 17:50 Dose: 75 mls/hr Lactulose (Lactulose*) 30 ml PO Q6H PRN PRN Reason: constipation Levothyroxine Sodium (Synthroid Tab*) 112 mcg PO QAM [facility] Losartan Potassium (Cozaar Tab*) 25 mg PO QAM [facility] Magnesium Hydroxide (Milk Of Magnesia Liq*) 30 ml PO BID [facility] Last Admin: 11/30/17 23:13 Dose: Not Given Magnesium Hydroxide (Milk Of Magnesia Liq*) 30 ml PO Q6H PRN PRN Reason: constipation Metformin HCl (Glucophage*) 500 mg PO BID [facility] Last Admin: 11/30/17 20:12 Dose: 500 mg Morphine Sulfate (Morphine Vial*) 2 mg IV Q2H PRN PRN Reason: PAIN - BREAKTHROUGH Last Admin: 11/30/17 22:49 Dose: 2 mg Morphine Sulfate (Morphine Vial*) 4 mg IV Q2H PRN PRN Reason: PAIN - UNRELIEVED Nitroglycerin (Nitroglycerin 5 Mg Patch*) 1 patch TRANSDERM QAM [facility] Ondansetron HCl (Zofran Inj*) 4 mg IV Q6H PRN PRN Reason: nausea Ondansetron HCl (Zofran Odt Tab*) 4 mg PO Q6H PRN PRN Reason: NAUSEA Oxycodone HCl (Roxycodone Tab*) 10 mg PO Q4H PRN PRN Reason: PAIN - SEVERE Last Admin: 12/01/17 06:23 Dose: 10 mg Oxycodone/Acetaminophen (Percocet 5/325 Tab*) 1 tab PO Q4H PRN PRN Reason: PAIN - MILD Oxycodone/Acetaminophen (Percocet 5/325 Tab*) 2 tab PO Q4H PRN PRN Reason: PAIN - MODERATE Last Admin: 11/30/17 18:50 Dose: 2 tab Pharmacy Profile Note (Nitro Patch/Oint Remove*) 1 note PATCH OFF BEDTIME [facility] Last Admin: 11/30/17 23:13 Dose: Not Given Potassium Chloride (Klor Con Er Tab*) 20 meq PO BID [facility] - Review of Systems Constitutional Symptoms: Yes: Fatigue Pulmonary: Negative: Cough, Sputum, Respiratory Distress, Shortness of Breath Cardiology: Negative: Chest Pain, Palpitations, Swelling of Ankles, Faintness, Proximal NocturnalDyspnea Gastroenterology: Negative: Abdominal Pain, Nausea, Vomiting Genital - Urinary: Positive: Other - cristobal removed Home Medications: Home Medications Medication Instructions Recorded Confirmed Type Levothyroxine TAB* [Synthorid 112 112 mcg PO QAM 06/19/12 11/30/17 History MCG TAB*] hydrALAZINE TAB* [Apresoline TAB*] 20 mg PO TID 06/19/12 11/30/17 History metFORMIN* [Glucophage 500 MG TAB 500 mg PO BID 06/19/12 11/30/17 History *] Atenolol TAB* [Tenormin TAB* 50 MG] 25 mg PO BID 10/20/12 11/30/17 History amLODIPine TAB* [Norvasc 5 mg TAB*] 10 mg PO QAM 10/20/12 11/30/17 History Glucosamine 500 mg PO QAM 11/20/14 11/30/17 History Apixaban* [Eliquis] 1 tab PO BID 11/18/17 11/30/17 History Atorvastatin* [Lipitor 20 MG*] 20 mg PO QPM 11/18/17 11/30/17 History Cholecalciferol 2,000 units PO QAM 11/18/17 11/30/17 History Losartan Potassium 25 mg PO QAM 11/18/17 11/30/17 History Nitroglycerin 0.2 MG/HR PATCH* 1 patch TOPICAL QAM 11/18/17 11/30/17 History Tramadol HCl 1 tab PO QID PRN 11/18/17 11/30/17 History Allergies: Allergies Allergy/AdvReac Type Severity Reaction Status Date / Time ibuprofen Allergy Intermediate See Comment Verified 11/18/17 14:57 hydrochlorothiazide Allergy Mild See Comment Verified 11/18/17 14:53 simvastatin Allergy Mild Fatigue Verified 11/18/17 14:57 valsartan Allergy Mild Palpitation Verified 11/18/17 14:57 s cephalexin [From Keflex] Allergy Itching Verified 11/29/17 14:22 Objective - Vital Signs Vital Signs: Vital Signs 07/11/30/17 11/30/17 08:57 13:52 13:55 Temperature 98.1 F 97.7 F Pulse Rate 60 63 63 Respiratory 16 12 3 Rate Blood Pressure 159/74 136/76 138/78 (mmHg) O2 Sat by Pulse 97 100 100 Oximetry 11/30/17 11/30/17 11/30/17 14:00 14:05 14:10 Temperature Pulse Rate 60 67 61 Respiratory 12 16 12 Rate Blood Pressure 140/77 138/84 149/75 (mmHg) O2 Sat by Pulse 100 100 100 Oximetry 11/30/17 11/30/17 11/30/17 14:15 14:19 14:20 Temperature Pulse Rate 60 60 60 Respiratory 14 9 9 Rate Blood Pressure 141/76 141/76 141/76 (mmHg) O2 Sat by Pulse 100 100 100 Oximetry 11/30/17 11/30/17 11/30/17 14:30 14:45 15:01 Temperature Pulse Rate 60 67 60 Respiratory 11 14 17 Rate Blood Pressure 130/73 143/80 170/72 (mmHg) O2 Sat by Pulse 100 99 100 Oximetry 11/30/17 11/30/17 11/30/17 15:11 15:15 15:22 Temperature 97.7 F Pulse Rate 60 67 Respiratory 18 Rate Blood Pressure 139/71 85/69 (mmHg) O2 Sat by Pulse 98 98 Oximetry 11/30/17 11/30/17 11/30/17 15:26 15:29 15:30 Temperature Pulse Rate 60 63 62 Respiratory Rate Blood Pressure 83/50 72/42 78/48 (mmHg) O2 Sat by Pulse 97 96 96 Oximetry 11/30/17 11/30/17 11/30/17 15:33 15:38 15:40 Temperature Pulse Rate 68 61 60 Respiratory 16 14 18 Rate Blood Pressure 84/49 111/63 117/75 (mmHg) O2 Sat by Pulse 96 99 99 Oximetry 11/30/17 11/30/17 11/30/17 15:43 15:45 15:48 Temperature Pulse Rate 61 Respiratory 16 13 16 Rate Blood Pressure 142/70 (mmHg) O2 Sat by Pulse 99 Oximetry 11/30/17 11/30/17 11/30/17 15:50 15:55 16:00 Temperature Pulse Rate 61 60 61 Respiratory 14 22 19 Rate Blood Pressure 134/71 151/77 143/76 (mmHg) O2 Sat by Pulse 98 100 100 Oximetry 11/30/17 11/30/17 11/30/17 16:03 16:12 16:16 Temperature Pulse Rate 62 Respiratory 16 15 18 Rate Blood Pressure 184/60 (mmHg) O2 Sat by Pulse 100 Oximetry 11/30/17 11/30/17 11/30/17 16:26 16:30 16:35 Temperature Pulse Rate 60 60 Respiratory 20 21 18 Rate Blood Pressure 151/75 159/67 (mmHg) O2 Sat by Pulse 100 100 Oximetry 11/30/17 11/30/17 11/30/17 16:36 16:41 16:45 Temperature Pulse Rate 61 61 60 Respiratory 21 20 16 Rate Blood Pressure 161/86 139/71 148/75 (mmHg) O2 Sat by Pulse 100 100 100 Oximetry 11/30/17 11/30/17 11/30/17 16:51 16:55 16:57 Temperature Pulse Rate 61 60 Respiratory 17 21 16 Rate Blood Pressure 140/72 137/78 (mmHg) O2 Sat by Pulse 100 100 Oximetry 11/30/17 11/30/17 11/30/17 17:00 17:25 17:29 Temperature 98.2 F Pulse Rate 60 61 Respiratory 21 20 20 Rate Blood Pressure 133/76 142/68 (mmHg) O2 Sat by Pulse 100 99 Oximetry 11/30/17 11/30/17 11/30/17 17:30 17:52 17:53 Temperature 98.2 F Pulse Rate 61 Respiratory 16 20 20 Rate Blood Pressure 142/68 (mmHg) O2 Sat by Pulse 99 Oximetry 11/30/17 11/30/17 11/30/17 18:00 18:43 18:50 Temperature 97.5 F Pulse Rate 65 Respiratory 20 18 20 Rate Blood Pressure 133/60 (mmHg) O2 Sat by Pulse 99 Oximetry 11/30/17 11/30/17 11/30/17 19:40 20:00 20:03 Temperature 98.9 F Pulse Rate 61 Respiratory 16 18 18 Rate Blood Pressure 157/67 (mmHg) O2 Sat by Pulse 98 Oximetry 11/30/17 11/30/17 11/30/17 21:34 22:48 22:49 Temperature 98.3 F Pulse Rate 61 Respiratory 18 20 20 Rate Blood Pressure 149/64 (mmHg) O2 Sat by Pulse 98 Oximetry 12/01/17 12/01/17 12/01/17 00:06 02:08 03:50 Temperature 99.0 F Pulse Rate 62 Respiratory 16 18 16 Rate Blood Pressure 157/68 (mmHg) O2 Sat by Pulse 98 Oximetry 12/01/17 12/01/17 04:07 06:23 Temperature 98.9 F Pulse Rate 60 Respiratory 16 16 Rate Blood Pressure 149/62 (mmHg) O2 Sat by Pulse 98 Oximetry - Intake and Output Intake and Output: Intake & Output 11/28/17 11/29/17 11/30/17 12/01/17 11:59 11:59 11:59 11:59 Intake Total 2840 Output Total 3050 Balance -210 Weight 111 lb Intake: IV Fluids 0 LR 2200 Oral 640 Output: Urine 1000 Cristobal 2049 Other: # Bowel Movements 0 Estimated Blood Loss 200 Comment ADLs: Meal Record Start: 11/30/17 08: 50 Freq: DAILY@0900,1400,1800 Status: Complete Protocol: Created 11/30/17 08:50 System (Rec: 11/30/17 08:50 System [id number]) ADLs: Meal Record Start: 11/30/17 19: 54 Freq: Status: Active Protocol: Created 11/30/17 19:54 [id number] (Rec: 11/30/17 19:54 [id number]) Intake and Output Start: 11/30/17 08: 50 Freq: DAILY@0600,1400,2200 Status: Cancelled Protocol: Created 11/30/17 08:50 System (Rec: 11/30/17 08:50 System [id number]) Intake and Output Start: 11/30/17 13: 52 Freq: 06,14,2200 Status: Active Protocol: Created 11/30/17 14:03 [id number] (Rec: 11/30/17 14:03 [id number] [id number]) Intake and Output Start: 11/30/17 19: 54 Freq: DAILY@0600,1400,2200 Status: Active Protocol: Created 11/30/17 19:54 [id number] (Rec: 11/30/17 19:54 [id number]) Document 11/30/17 23:09 [id number] (Rec: 11/30/17 23:18 [id number]) Document 12/01/17 05:44 [id number] (Rec: 12/01/17 05:44 [id number]) - Physical Exam General Physical Exam Comment: Warm and well perfused, she is in no acute distress. General: No Cyanosis, No Anemia, No Jaundice, No Clubbing Lungs and Chest: Yes: Chest Expansion Full, Chest Expansion Symetrica, Percussion Note Resonant, Vessicular Breath Sounds. No: Crackles, Wheezes Heart Rate and Rhythm: Regular Additional Cardiovascular: Yes: Normal Heart Sounds, Heart Murmur. No: Pedal Edema Abdominal Exam: Yes: Soft, Bowel Sounds Present. No: Distention, Abdominal Tenderness - Extremities Cranial Nerves II-XII Intact: Yes Limbs: Normal Power - informally tested, but intact 4 limbs - Neuro Orientation: A/O x3 Speech: Normal Results - Results Lab Results: Laboratory Results - last 24 hr 11/30/17 11/30/17 11/30/17 09:02 10:17 13:03 Hgb Hct Plt Count MPV Sodium Potassium Chloride Carbon Dioxide Anion Gap BUN Creatinine Est GFR ( Amer) Est GFR (Non-Af Amer) BUN/Creatinine Ratio Glucose POC Glucose (mg/dL) 89 82 88 Calcium 11/30/17 11/30/17 11/30/17 13:57 17:39 22:58 Hgb Hct Plt Count MPV Sodium Potassium Chloride Carbon Dioxide Anion Gap BUN Creatinine Est GFR ( Amer) Est GFR (Non-Af Amer) BUN/Creatinine Ratio Glucose POC Glucose (mg/dL) 74 206 H 210 H Calcium 12/01/17 12/01/17 12/01/17 06:17 06:17 07:25 Hgb 10.0 L Hct 29 L Plt Count 202 MPV 9.2 Sodium 137 Potassium 3.3 L Chloride 99 L Carbon Dioxide 28 Anion Gap 10 BUN 11 Creatinine 0.78 Est GFR ( Amer) 85.3 Est GFR (Non-Af Amer) 70.5 BUN/Creatinine Ratio 14.1 Glucose 127 H POC Glucose (mg/dL) 147 H Calcium 9.7 Radiology Results: Patient Name: CINDY KUMAR Medical Record#: [id number] Ordering Physician: Nneka RILEY Acct.#: [id number] : 1935 Age: 82 Sex: F Location: AM ADMITS Exam Date: 11/30/17 1352 ADM Status: ADM IN Order Information: KNEE LEFT 1-2 VWS Accession Number: [id number] CPT: 47705 Indication: Postop LEFT total knee replacement. Comparison: No relevant prior exams available on the [facility] PACS for comparison. Technique: LEFT knee: AP and crosstable lateral views LEFT knee. views. Report: Total knee prosthesis in place with normal alignment. Negative for periprosthetic fracture. Anterior soft tissue edema and subcutaneous emphysema. IMPRESSION: #. Unremarkable immediate postop appearance of LEFT total knee replacement. <Electronically signed by Joseph Acharya MD in OV> 11/30/17 1506 Dictated By: Joseph Acharya MD Dictated Date/Time: 11/30/17 1506 Transcribed Date/Time: 11/30/17 1458 Copy to: CC:Dimitry Baltazar MD; Nneka RILEY; Alicia Henning MD Imaging - [facility] [address] [place] [address] ph ([phone]) ph ([phone]) ph ([phone]) This report is only to be considered final once signed by the Provider(s) as displayed in the "<Electronically Signed by >" field (s). Absence of a signature indicates the report is in a draft status and still needs to be finalized. In the event this document was created by someone other than the signing Provider, the individual initiating the document will be listed in the "Entered by:" or "Dictated by:" herring. 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 I have stopped her IVF as she is eating/drinking. She is back on her anticoagulation. I will order her a consistent carbohydrate diet. I am putting in a referral to [facility] as I think she would qualify owing to her comorbidities and benefit greatly.
[2017-12-01] MEDS: Nitroglycerin 0.2 MG/HR PATCH* (5 MG) TRANSDERM SCH (08:37)
[2017-12-01] MEDS: Ferrous Sulfate TAB* 325 MG PO SCH ×2 (08:39→21:17)
[2017-12-01] MEDS: Docusate CAP* 100 MG PO SCH ×2 (08:39→21:16)
[2017-12-01] MEDS: Magnesium Hydroxide LIQ* 30 ML UDC PO SCH ×2 (08:39→21:21)
[2017-12-01] MEDS: Levothyroxine TAB* 112 MCG TAB PO SCH (08:39)
[2017-12-01] MEDS: Potassium Chlor TAB* 20 MEQ TAB.ER PO SCH ×2 (08:39→21:16)
[2017-12-01] MEDS: amLODIPine TAB* 5 MG PO SCH (08:40)
[2017-12-01] MEDS: hydrALAZINE TAB* 10 MG PO SCH ×3 (08:40→21:15)
[2017-12-01] MEDS: metFORMIN* 500 MG TAB PO SCH ×2 (08:40→21:16)
[2017-12-01] MEDS: Atenolol TAB* 25 MG PO SCH ×2 (08:40→21:16)
[2017-12-01] MEDS: Losartan TAB* 25 MG PO SCH (08:40)
--- NOTE | 2017-12-01 10:07 | PN ---
Progress Note - Progress Note Date of Service: 12/01/17 SOAP: Subjective: []Patient seen at bedside. She is very sleepy and does not respond to questions or to instruction. She does express pain when her left knee is moved. Low BPs in the PACU, not recorded since. Objective: []General: NAD, sleepy but awakens to spoken voice. Does not follow commands or answer questions LLE: Left knee dressing CDI without surrounding erythema. Thigh is soft. DP2+. Does not follow instruction to assess DF/PF BL calves supple and nontender without erythema, edema or palpable cords Assessment: []POD 1 sp left total knee arthroplasty Plan: []WBAT PT/OT Limit narcotics, ensure PO intake Dr Cobian following for medical management Eliquis 1.5 mg PO BID for DVT prophylaxis Vital Signs Temp 98.3 F 12/01/17 07:43 Pulse 60 12/01/17 07:43 Resp 16 12/01/17 08:38 BP 143/64 12/01/17 07:43 Pulse Ox 99 12/01/17 08:00 Intake & Output 11/30/17 12/01/17 12/01/17 18:59 06:59 18:59 Intake Total 2440 400 1073 Output Total 1700 1350 Balance 740 -950 1073 Weight 111 lb Intake: IV Fluids 2200 1073 ABX - CLINDAMYCIN 110 LR 2200 963 Oral 240 400 Output: Urine 1000 Michel 1700 350 Other: # Bowel Movements 0 Estimated Blood Loss 200 Comment Laboratory Last Values Hgb 10.0 g/dl (12.0-16.0) L 12/01/17 06:17 Hct 29 % (35-47) L 12/01/17 06:17 Plt Count 202 10^3/ul (150-450) 12/01/17 06:17 MPV 9.2 um3 (7.4-10.4) 12/01/17 06:17 Sodium 137 mmol/L (135-145) 12/01/17 06:17 Potassium 3.3 mmol/L (3.5-5.0) L 12/01/17 06:17 Chloride 99 mmol/L (101-111) L 12/01/17 06:17 Carbon Dioxide 28 mmol/L (22-32) 12/01/17 06:17 Anion Gap 10 mmol/L (2-11) 12/01/17 06:17 BUN 11 mg/dL (6-24) 12/01/17 06:17 Creatinine 0.78 mg/dL (0.51-0.95) 12/01/17 06:17 Est GFR ( Amer) 85.3 (>60) 12/01/17 06:17 Est GFR (Non-Af Amer) 70.5 (>60) 12/01/17 06:17 BUN/Creatinine Ratio 14.1 (8-20) 12/01/17 06:17 Glucose 127 mg/dL (70-100) H 12/01/17 06:17 POC Glucose (mg/dL) 147 mg/dL (70-100) H 12/01/17 07:25 Calcium 9.7 mg/dL (8.6-10.3) 12/01/17 06:17
[2017-12-01] MEDS: Apixaban* 2.5 MG TAB PO SCH ×2 (11:51→21:17)
[2017-12-01] MEDS ORDERED: traMADol TAB* 50 MG PO PRN (14:53)
--- NOTE | 2017-12-01 15:22 | OP ---
DATE OF OPERATION: 11/30/17 - ROOM #348 DATE OF : 33 ATTENDING SURGEON: Alicia Henning MD [employer] SUPERVISOR: OSVALDO Gutierrez. Ms. Hamilton did help throughout the procedure with preparation of the leg, wound retraction, manipulation of the knee, and wound closure. ANESTHESIOLOGIST: Dr. Duong. ANESTHESIA: Spinal. PRE-OP DIAGNOSIS: Severe end-stage degenerative osteoarthritis of the left knee joint with valgus deformity and flexion contracture. POST-OP DIAGNOSIS: Severe end-stage degenerative osteoarthritis of the left knee joint with valgus deformity and flexion contracture. OPERATIVE PROCEDURE: Left total knee arthroplasty. BRIEF HISTORY/INDICATIONS: Ms. Potter is an 82-year-old female with years of increasingly severe left knee pain. She failed conservative treatment with anti - inflammatories, pain medication, intraarticular injections and physical therapy. Due to continued pain and decreased quality of life, she elected to undergo left total knee arthroplasty. Radiographs showed valgus deformity and [id number] contact. Informed consent was obtained from the patient. She understood the risks of surgery included, but were not limited to, bleeding, infection, damage to nearby structures, continued pain, need for further surgery , intraoperative fracture, nerve palsy, hardware failure or loosening, knee stiffness, loss of motion, stroke, heart attack, blood clot, and . She wished to proceed. INTRAOPERATIVE FINDINGS: Intraoperatively, the patient had flexion contracture at 25 degrees to begin the case. She had 12-degree valgus deformity. She was brought to full extension during surgery and valgus deformity was corrected to anatomic valgus of 3 degrees. She was noted to have significant osteopenia throughout the case. She had tricompartmental full-thickness loss of cartilage. She had extensive osteophyte formation. Lateral femoral condylar hypoplasia was noted. TOURNIQUET TIME: 46 minutes. COMPLICATIONS: None. SPECIMENS: Bone and cartilage from the left knee joint sent to Pathology. ESTIMATED BLOOD LOSS: 200 cc. HARDWARE USED: This is cemented Lice[employer]hew total knee arthroplasty hardware. Two packages of Simplex bone cement were used. For the femur, a Legion posterior stabilized left size 4 femoral component. For the tibia, a left Erin II size 3 tibial base plate. For the insert, a 9 mm posterior stabilized articular insert size 3/4 and for the patella, a 32 mm 3-peg all poly patella with 7.5 thickness. DESCRIPTION OF PROCEDURE: Ms. Potter was identified in the preanesthesia unit. Her left lower extremity was marked as the correct operative side. Informed consent was signed and placed in the chart. The patient was taken to the operating room and placed under spinal anesthesia. A Michel catheter was placed. Tourniquet was placed on the left thigh. Left lower extremity was prepped and draped in the usual sterile fashion. Preop time-out was made to correctly identify the patient's side and site. Appropriate perioperative antibiotics were given within 1 hour of incision. Tourniquet was inflated and total tourniquet time for this procedure was 46 minutes. A 12 cm midline incision was made with a 10-blade and carried down to the extensor mechanism. A new 10-blade was used to make a standard medial parapatellar arthrotomy. The patella was subluxed laterally. Electrocautery was used to subperiosteally elevate soft tissue off the superomedial tibia to the mid sagittal plane. Knee was flexed up. The anterior horn of the lateral meniscus and the ACL were sharply released. A drill was used to enter the distal femur. Intramedullary distal femoral cutting guide was pinned on the distal femur. Oscillating saw was used to make the distal femoral cut. External rotation guide was pinned on the distal femur and the distal femur was sized to a size 4. Size 4 multi-cutting jig was placed on the distal femur and pinned into position. Oscillating saw was used to make the appropriate 4 chamfer cuts. The PCL was completely released and the tibia was subluxed anteriorly. Extramedullary tibial cutting guide was pinned on the proximal tibia. Oscillating saw was used to make a proximal tibial cut perpendicular to the mechanical access of the tibia. The bone was carefully removed. The knee was brought out into full extension. The spacer block had good fit with the knee in full extension. Medial and lateral ligaments were well balanced. Valgus deformity was corrected to anatomic. Flexion and extension gaps were well balanced. The knee was flexed up. The lamina relay repairer was placed both medially and laterally. Any remaining meniscus was carefully removed using electrocautery. Curved osteotome was used to remove any posterior osteophytes. Tibial tray and drop taylor were placed and once again confirmed a satisfactory proximal tibial cut. A trial size left 4 femur was impacted onto the distal femur and had excellent fit. The box for the posterior stabilized implant was prepared using a reamer and box cut osteotome. Size 3 tibial tray trial with a 9 mm insert trial was placed and the knee was taken through a range of motion. The knee had full extension to 130 degrees of flexion. There was satisfactory patellofemoral tracking. The patella was everted. A 7 mm of subpatellar bone and cartilage were removed using electrocautery. The patella was sized to a size 32. Three peg holes were drilled through the size 32 guide. A 32 trial patella with 7.5 thickness was placed and the knee was taken through a range of motion. There was satisfactory patellofemoral tracking. All trials were carefully removed. The tibia was subluxed anteriorly and sized to a size 3. Proximal tibia was prepared using a size 3 keel punch. All bony cut surfaces were copiously irrigated with sterile saline and dried. Final implants were cemented into place starting with the tibia followed by the femur and last the patella. A 9 mm insert trial was placed and the knee was taken to full extension. Tourniquet was turned down at 46 minutes. The knee was copiously irrigated with sterile saline. Electrocautery was used to obtain meticulous hemostasis. Once the cement had fully cured, the insert trial was removed. Any excess cement was removed from around the capsule and hardware. Final insert chosen was a 9 mm posterior stabilized articular insert size 3-4. This was locked into position on the tibial tray. Stability of the insert was checked and rechecked and noted to be stable. The knee was once again copiously irrigated with sterile saline. The extensor mechanism was closed using interrupted #1 Vicryls. The rest of the incision was closed in a layered fashion using 0 and 2-0 Vicryls. Skin was closed using running 3-0 nylon suture. Sterile Xeroform, 4x4s, and Webril were used to cover the incision. Blair wrap and cold pack were placed over this. The patient' s anesthesia was reversed without difficulty. She was taken to the PACU in stable condition. Intended weightbearing will be weightbearing as tolerated. Intended DVT prophylaxis will be Coumadin with a Lovenox bridge. [id number]/[facility] #: [id number] COLBY
[2017-12-01] MEDS: Atorvastatin* 20 MG TAB PO SCH (16:49)
[2017-12-01] MEDS: Nitro Patch/OINT Remove PATCH OFF SCH (21:14)
[2017-12-02] MEDS: Acetaminophen TAB* 325 MG PO SCH ×4 (00:02→23:41)
[2017-12-02 05:26] LABS: Hematocrit 25 % (35-47); Hemoglobin 8.5 g/dl (12.0-16.0); Mean Platelet Volume 8.4 um3 (7.4-10.4); Platelet Count 170 10^3/ul (150-450)
--- NOTE | 2017-12-02 07:06 | PN ---
Progress Note - Progress Note Date of Service: 12/02/17 SOAP: Subjective: [] Patient seen at bedside. She is in pain only with movement of the left knee. She denies CP, SOB, dizziness. Objective: []General: NAD, responds well to instruction and normal conversation today. LLE: Left knee dressing changed, incision CDI without surrounding erythema. Thigh is soft. DP2+. DF/PF intact, remains weak more so on left than right. Sensation intact distally. BL calves supple and nontender without erythema, edema or palpable cords Assessment: []POD 2 sp left total knee arthroplasty Plan: []WBAT PT/OT, encourage ankle pumps Continue to limit narcotics, ensure PO intake Dr Law cruz for medical management Eliquis 2.5 mg PO BID for DVT prophylaxis Vital Signs Temp 98.2 F 12/01/17 23:58 Pulse 59 12/01/17 23:58 Resp 16 12/01/17 23:58 BP 141/55 12/01/17 23:58 Pulse Ox 99 12/01/17 23:58 Intake & Output 12/01/17 12/02/17 12/02/17 18:59 06:59 18:59 Intake Total 1948 1100 Output Total 275 250 Balance 1673 850 Intake: IV Fluids 1148 ABX - CLINDAMYCIN 165 LR 983 Oral 800 1100 Output: Urine 275 250 Other: Estimated Void Medium # Voids 1 Laboratory Last Values Hgb 8.5 g/dl (12.0-16.0) L 12/02/17 05:19 Hct 25 % (35-47) L 12/02/17 05:19 Plt Count 170 10^3/ul (150-450) 12/02/17 05:19 MPV 8.4 um3 (7.4-10.4) 12/02/17 05:19 Sodium 137 mmol/L (135-145) 12/01/17 06:17 Potassium 3.3 mmol/L (3.5-5.0) L 12/01/17 06:17 Chloride 99 mmol/L (101-111) L 12/01/17 06:17 Carbon Dioxide 28 mmol/L (22-32) 12/01/17 06:17 Anion Gap 10 mmol/L (2-11) 12/01/17 06:17 BUN 11 mg/dL (6-24) 12/01/17 06:17 Creatinine 0.78 mg/dL (0.51-0.95) 12/01/17 06:17 Est GFR ( Amer) 85.3 (>60) 12/01/17 06:17 Est GFR (Non-Af Amer) 70.5 (>60) 12/01/17 06:17 BUN/Creatinine Ratio 14.1 (8-20) 12/01/17 06:17 Glucose 127 mg/dL (70-100) H 12/01/17 06:17 POC Glucose (mg/dL) 155 mg/dL (70-100) H 12/01/17 16:55 Calcium 9.7 mg/dL (8.6-10.3) 12/01/17 06:17
[2017-12-02] MEDS: Magnesium Hydroxide LIQ* 30 ML UDC PO SCH ×2 (08:36→21:07)
[2017-12-02] MEDS: Atenolol TAB* 25 MG PO SCH ×2 (08:37→21:09)
[2017-12-02] MEDS: metFORMIN* 500 MG TAB PO SCH ×2 (08:37→21:09)
[2017-12-02] MEDS: Losartan TAB* 25 MG PO SCH (08:37)
[2017-12-02] MEDS: Docusate CAP* 100 MG PO SCH ×2 (08:37→21:09)
[2017-12-02] MEDS: Apixaban* 2.5 MG TAB PO SCH ×2 (08:37→21:08)
[2017-12-02] MEDS: Potassium Chlor TAB* 20 MEQ TAB.ER PO SCH ×2 (08:37→21:08)
[2017-12-02] MEDS: Ferrous Sulfate TAB* 325 MG PO SCH ×2 (08:37→21:08)
[2017-12-02] MEDS: amLODIPine TAB* 5 MG PO SCH (08:37)
[2017-12-02] MEDS: Levothyroxine TAB* 112 MCG TAB PO SCH (08:37)
[2017-12-02] MEDS: hydrALAZINE TAB* 10 MG PO SCH ×3 (08:38→21:05)
[2017-12-02] MEDS: Nitroglycerin 0.2 MG/HR PATCH* (5 MG) TRANSDERM SCH (08:38)
[2017-12-02] MEDS: Atorvastatin* 20 MG TAB PO SCH (17:00)
[2017-12-02] MEDS: Nitro Patch/OINT Remove PATCH OFF SCH (21:14)
[2017-12-03 05:32] LABS: Hematocrit 23 % (35-47); Hemoglobin 7.7 g/dl (12.0-16.0); Mean Platelet Volume 9.2 um3 (7.4-10.4); Platelet Count 166 10^3/ul (150-450)
--- NOTE | 2017-12-03 06:24 | PN ---
Progress Note - Progress Note Date of Service: 12/03/17 SOAP: Subjective: []Patient seen at bedside. She feels well today with no lightheadedness, dizziness, chest pain, shortness of breath. She has no knee pain while laying still in bed. Objective: [] General: NAD, normal conversation without any obvious confusion today. LLE: Left knee dressing changed, incision CDI without surrounding erythema. Thigh is soft. DP2+. DF/PF intact with strength improved bilaterally from yesterday. Sensation intact distally. BL calves supple and nontender without erythema, edema or palpable cords Assessment: []POD 3 sp left total knee arthroplasty Acute bloodloss anemia Plan: []WBAT PT/OT, encourage ankle pumps Continue to limit narcotics, ensure PO intake Dr Law cruz for medical management Eliquis 2.5 mg PO BID for DVT prophylaxis Acute bloodloss anemia. Asymptomatic as well as An[employer], per patient' s request blood products are not an option. Will continue iron, monitor H&H and monitor for symptoms Okay for DC to [facility] today as long as she does not become symptomatic. Monitor H&H and symptoms Vital Signs Temp 98.6 F 12/03/17 04:07 Pulse 62 12/03/17 04:07 Resp 16 12/03/17 04:07 BP 113/45 12/03/17 04:07 Pulse Ox 99 12/03/17 04:07 Intake & Output 12/02/17 12/02/17 12/03/17 06:59 18:59 06:59 Intake Total 1100 585 500 Output Total 250 200 500 Balance 850 385 0 Intake: Oral 1100 585 500 Output: Urine 250 200 500 Other: Estimated Void Medium Medium Large Date of Last Bowel 12/02/17 12/03/2017 Movement # Bowel Movements 2 1 Estimated Stool Amount Medium Medium # Voids 1 3 1 Laboratory Last Values Hgb 7.7 g/dl (12.0-16.0) L 12/03/17 05:08 Hct 23 % (35-47) L 12/03/17 05:08 Plt Count 166 10^3/ul (150-450) 12/03/17 05:08 MPV 9.2 um3 (7.4-10.4) 12/03/17 05:08 Sodium 137 mmol/L (135-145) 12/01/17 06:17 Potassium 3.3 mmol/L (3.5-5.0) L 12/01/17 06:17 Chloride 99 mmol/L (101-111) L 12/01/17 06:17 Carbon Dioxide 28 mmol/L (22-32) 12/01/17 06:17 Anion Gap 10 mmol/L (2-11) 12/01/17 06:17 BUN 11 mg/dL (6-24) 12/01/17 06:17 Creatinine 0.78 mg/dL (0.51-0.95) 12/01/17 06:17 Est GFR ( Amer) 85.3 (>60) 12/01/17 06:17 Est GFR (Non-Af Amer) 70.5 (>60) 12/01/17 06:17 BUN/Creatinine Ratio 14.1 (8-20) 12/01/17 06:17 Glucose 127 mg/dL (70-100) H 12/01/17 06:17 POC Glucose (mg/dL) 115 mg/dL (70-100) H 12/02/17 16:59 Calcium 9.7 mg/dL (8.6-10.3) 12/01/17 06:17
[2017-12-03 08:05] VITALS: BP 138/57
[2017-12-03] MEDS: hydrALAZINE TAB* 10 MG PO SCH (08:14)
[2017-12-03] MEDS: Potassium Chlor TAB* 20 MEQ TAB.ER PO SCH (08:14)
[2017-12-03] MEDS: Apixaban* 2.5 MG TAB PO SCH (08:14)
[2017-12-03] MEDS: Atenolol TAB* 25 MG PO SCH (08:14)
[2017-12-03] MEDS: Acetaminophen TAB* 325 MG PO SCH (08:14)
[2017-12-03] MEDS: amLODIPine TAB* 5 MG PO SCH (08:14)
[2017-12-03] MEDS: Losartan TAB* 25 MG PO SCH (08:14)
[2017-12-03] MEDS: Ferrous Sulfate TAB* 325 MG PO SCH (08:14)
[2017-12-03] MEDS: metFORMIN* 500 MG TAB PO SCH (08:14)
[2017-12-03] MEDS: Docusate CAP* 100 MG PO SCH (08:18)
[2017-12-03] MEDS: Magnesium Hydroxide LIQ* 30 ML UDC PO SCH (08:18)
[2017-12-03] MEDS: Levothyroxine TAB* 112 MCG TAB PO SCH (08:22)
[2017-12-03] MEDS: Nitroglycerin 0.2 MG/HR PATCH* (5 MG) TRANSDERM SCH (08:24)
--- NOTE | 2017-12-03 11:05 | DS ---
CC: [facility] * DISCHARGE SUMMARY: DATE OF ADMISSION: 11/30/17 DATE OF DISCHARGE: 11/23/17 SURGEON: Dr. Alicia Henning * (DICTATED BY OSVALDO PIERRE) CORN PICKER: OSVALDO Pierre POSTOPERATIVE DIAGNOSES: Severe end-stage degenerative osteoarthritis of the left knee joint, valgus deformity, and flexion contracture. OPERATIVE PROCEDURE: Left total knee arthroplasty. INDICATION AND HISTORY: Ms. Potter is an 82-year-old female with years of increasingly severe left knee pain. She failed conservative treatment and elected to undergo a left total knee arthroplasty. HOSPITAL COURSE: The patient was admitted to [facility] on . She underwent a left total knee arthroplasty without complications. She was transferred in the PACU and recovered and then to short-stay surgical unit in stable condition. She was seen by her primary care physician, Dr. Baltazar, while she was in-house. Postop day 1, she was well appearing, in no acute distress. She was very sleepy, but she did awaken to spoken voice at this time , but she did not follow commands. She did not answer questions. Her left knee dressing was clean, dry, and intact without surrounding erythema. Her thigh was soft. Dorsiflexion and plantarflexion - she would not follow instruction to assess. Her dorsalis pedis pulse was 2+. Postop day 2, the patient was in no acute distress, responding well to questions, and participating in normal conversation. Left knee dressing was changed. Incision clean, dry, intact without surrounding erythema. Thigh was soft. DP 2 +. Dorsiflexion, plantar flexion intact. Postop day 3, the patient was well appearing, in no acute distress, carrying on normal conversation. Left knee dressing changed. Incision clean, dry, intact without surrounding erythema. Thigh was soft. Dorsalis pedis +2. Dorsiflexion, plantar flexion intact. Strength improved bilaterally from yesterday. Sensation intact distally. Calf supple, nontender without erythema, edema, or palpable cords. The patient's H and H shows acute blood loss, anemia. Today, she has hemoglobin of 7.7, hematocrit of 23. Vital Signs: Temperature 98.6, pulse 68, respiratory rate 16, blood pressure 113/75, and pulse ox 99. Despite acute blood-loss anemia, the patient remains asymptomatic. She is not having any lightheadedness, dizziness, chest pain, shortness of breath, confusion. The patient is a [employer]. She requests no blood products. I will continue her on iron. She can discharge to [facility] today as long as she does not become symptomatic, but she does need to be monitored for any symptoms of acute blood anemia. She should continue iron, ferrous sulfate 325 b.i.d., and her H and H needs to be checked tomorrow, 12/04/17. DISCHARGE MEDICATIONS: 1. Hydralazine 20 mg p.o. t.i.d. 2. Metformin 500 mg p.o. b.i.d. 3. Levothyroxine 112 mcg p.o. q.a.m. 4. Atenolol 25 mg p.o. b.i.d. 5. Amlodipine 10 mg p.o. q.a.m. 6. Glucosamine 500 mg p.o. q.a.m. 7. Eliquis 2.5 mg p.o. b.i.d. 8. Tramadol 50 mg one tab p.o. q.i.d. p.r.n. 9. Nitroglycerin patch 0.2 mg/hour topically q.a.m. p.r.n. 10. Cholecalciferol 2000 units p.o. q.a.m. 11. Atorvastatin 20 mg p.o. q.p.m. 12. Losartan 25 mg p.o. q.a.m. 13. Acetaminophen 975 mg p.o. q.8 hours p.r.n. 14. 4000 mg daily. 15. Docusate 100 mg p.o. b.i.d. 16. Tramadol 50 mg p.o. q.6 hours p.r.n. 17. Ferrous 325 p.o. b.i.d. DISCHARGE PLAN: The patient will be weightbearing as tolerated. Okay to shower on postop day 3. No bathing, swimming, or submerging the wound. DVT prophylaxis - she will continue Eliquis 2.5 mg every 12 hours. Continue pain control with tramadol 50 mg by mouth every 4 to 6 hours as needed for pain, max of 6 tabs per day. Followup with Dr. Henning in 10 to 14 days, or sooner if there are any questions or concerns. Please have an H and H drawn tomorrow, 12/04/17, to monitor her H and H. MARY HAN, OSVALDO [id number]/[facility] #: [id number] [facility]
[2017-12-03] MEDS ORDERED: Morphine INJ* 2 MG/ML 1 ML SYRINGE (TWO MG - NEW SYRINGE VERSION) IV PRN (12:00)
== END 2017-12-03 11:33 | DRG 470 ==
LOC: MED 08:29 → AA 10:15 → SSU 17:27
PROVIDERS: ADMIT Orthopaedic Surgery Adult Reconstructive Orthopaedic Surgery; ATTEND Orthopaedic Surgery Adult Reconstructive Orthopaedic Surgery
PROC: 0SRD0J9 Replacement of Left Knee Joint with Synthetic Substitute, Cemented, Open Approach (ICD-10-PCS; principal; 2017-11-30 11:00)
DX: M17.12 Unilateral primary osteoarthritis, left knee (principal); M21.062 Valgus deformity, not elsewhere classified, left knee; M24.562 Contracture, left knee; I48.91 Unspecified atrial fibrillation; E03.9 Hypothyroidism, unspecified; D17.71 Benign lipomatous neoplasm of kidney; I25.10 Atherosclerotic heart disease of native coronary artery without angina pectoris; M25.462 Effusion, left knee; R54 Age-related physical debility; M85.862 Other specified disorders of bone density and structure, left lower leg; M25.762 Osteophyte, left knee; I10 Essential (primary) hypertension; E11.21 Type 2 diabetes mellitus with diabetic nephropathy; E78.00 Pure hypercholesterolemia, unspecified; Z95.0 Presence of cardiac pacemaker; Z88.1 Allergy status to other antibiotic agents; Z83.3 Family history of diabetes mellitus; Z82.49 Family history of ischemic heart disease and other diseases of the circulatory system; Z79.84 Long term (current) use of oral hypoglycemic drugs; Z79.01 Long term (current) use of anticoagulants; Z90.710 Acquired absence of both cervix and uterus; Z88.8 Allergy status to other drugs, medicaments and biological substances; R35.8 Other polyuria; D62 Acute posthemorrhagic anemia; I95.9 Hypotension, unspecified
CPT/HCPCS: 36415; 80048; 85014; 85018; 85049; 88305; 88311; A9270-GY; C1776; G8978-GP-CJ; G8978-GP-CK; G8978-GP-CL; G8979-GP-CI; G8979-GP-CJ; G8980-GP-CJ; G8987-GO-CL; G8988-GO-CI; J1170; J2250; J2270; J3010; J3490